=== PATIENT | female | born 1955 | race Caucasian/White ===

== ENCOUNTER → 2023-05-29 | Day surgery (SDC) | payer MEDICARE ==
[~2023-05-29] MED LIST: Ketamine 500 mg/10 ML MDV IV ONE; Lactated Ringers 1,000 ML IV SCH; Midazolam 1 MG/ML 2 ML SDV IV ONE; Propofol 200 MG/20 ML SDV IV ONE; Simethicone Drops 40 MG/0.6 ML 30 ML Bottle PO ONE; Sodium Chloride 0.9% 10 ML Syringe FLUSH PRN
== END | disposition home or self-care (01) ==
LOC: FB.SDS 07:37
PROVIDERS: ATTEND Surgery
DX: Z12.11 Encounter for screening for malignant neoplasm of colon (principal); K57.30 Diverticulosis of large intestine without perforation or abscess without bleeding; M79.672 Pain in left foot; R73.03 Prediabetes; E89.0 Postprocedural hypothyroidism; M17.12 Unilateral primary osteoarthritis, left knee; G43.909 Migraine, unspecified, not intractable, without status migrainosus; K21.9 Gastro-esophageal reflux disease without esophagitis; G40.009 Localization-related (focal) (partial) idiopathic epilepsy and epileptic syndromes with seizures of localized onset, not intractable, without status epilepticus; E66.9 Obesity, unspecified; Z86.010 Personal history of colon polyps; Z79.890 Hormone replacement therapy; Z79.899 Other long term (current) drug therapy; Z88.2 Allergy status to sulfonamides; Z88.8 Allergy status to other drugs, medicaments and biological substances; Z87.891 Personal history of nicotine dependence; Z68.29 Body mass index [BMI] 29.0-29.9, adult
CPT/HCPCS: 00812; A9270-GY; J2250; J2704; J3490; J7120

== ENCOUNTER 2023-06-25 07:15 | Day surgery (SDC) | payer MEDICARE ==
[~2023-06-25 07:15] MED LIST changes: -Ketamine 500 mg/10 ML MDV IV ONE; -Midazolam 1 MG/ML 2 ML SDV IV ONE; -Propofol 200 MG/20 ML SDV IV ONE; -Simethicone Drops 40 MG/0.6 ML 30 ML Bottle PO ONE
[2023-06-25] MEDS ORDERED: Propofol 200 MG/20 ML SDV IV ONE (07:16)
[2023-06-25] MEDS ORDERED: fentaNYL 100 MCG/2 ML SDV IV ONE (07:16)
[2023-06-25] MEDS ORDERED: Midazolam 1 MG/ML 2 ML SDV IV ONE (07:16)
== END 2023-06-25 09:43 | disposition home or self-care (01) ==
LOC: FB.SDS 07:15
PROVIDERS: ATTEND Surgery
DX: K29.50 Unspecified chronic gastritis without bleeding (principal); K21.00 Gastro-esophageal reflux disease with esophagitis, without bleeding; K31.A0 Gastric intestinal metaplasia, unspecified; K31.7 Polyp of stomach and duodenum; E89.0 Postprocedural hypothyroidism; Z87.891 Personal history of nicotine dependence; Z79.899 Other long term (current) drug therapy; Z88.2 Allergy status to sulfonamides
CPT/HCPCS: 00731; 43250; 88305; 88342; J2250; J2704; J3010; J7120